=== PATIENT | female | born 1955 | race Caucasian/White ===

== ENCOUNTER 2021-06-10 07:13 | Outpatient (CLI) | payer MEDICARE, OTHER | END 2021-06-10 23:59 | disposition home or self-care (01) | LOC: LAB 07:13 | PROVIDERS: ATTEND Surgery | DX: Z01.812 Encounter for preprocedural laboratory examination (principal); Z20.822 Contact with and (suspected) exposure to COVID-19 ==

== ENCOUNTER 2021-06-11 06:02 | Day surgery (SDC) | payer MEDICARE, OTHER ==
[2021-06-11 06:50] LABS: *BILIRUBIN,URIN NEGATIVE (NEGATIVE); *CLARITY,URINE CLEAR (CLEAR); *COLOR,URINE YELLOW (YELLOW); *KETONES,URINE NEGATIVE (NEGATIVE); *UROBILINOGEN,URINE 0.2 E.U./dl (NORMAL); LEUKOCYTE ESTERASE ,URINE NEGATIVE (NEGATIVE); NITRITE, URINE NEGATIVE (NEGATIVE); PH,URINE 6.5 (5.0-8.0); UGLUCOSE NEGATIVE (NEGATIVE)
[2021-06-11 06:51] LABS: MEAN CORPUSCULAR VOLUME 89.1 fL (75.5-95.3); PLATELET COUNT (AUTO) 163 K/uL (179-408)
[2021-06-11 06:55] LABS: CREATININE 0.6 mg/dL (0.6-1.3)
[2021-06-11] MEDS ORDERED: BUPIVACAINE/EPI PF 0.25% 30 ML VIAL ONE (06:56)
[2021-06-11] MEDS ORDERED: LIDOCAINE HCL 1% 20 ML VIAL ONE (06:56)
[2021-06-11 07:04] LABS: BILIRUBIN,TOTAL 0.5 mg/dL (0.2-1.0); TOTAL PROTEIN, SERUM 6.9 g/dL (6.4-8.2)
[2021-06-11] MEDS ORDERED: HYDROMORPHONE 2 MG/1 ML DISP.SYRIN ONE (07:41)
[2021-06-11] MEDS ORDERED: ROCURONIUM BROMIDE 50 MG/5 ML VIAL ONE (07:42)
[2021-06-11] MEDS ORDERED: FAMOTIDINE. 20 MG/2 ML VIAL IV ONE (07:42)
[2021-06-11 08:00] LABS: *BLOOD, URINE TRACE (NEGATIVE)
[2021-06-11] MEDS ORDERED: FENTANYL CITRATE 100 MCG/2 ML AMPUL ONE (09:47)
[2021-06-11] MEDS ORDERED: HYDROMORPHONE 1 MG/1 ML DISP.SYRIN ONE (10:17)
[2021-06-11] MEDS ORDERED: ONDANSETRON 4 MG/2 ML VIAL ONE ×2 (10:17→10:20)
[2021-06-11] MEDS ORDERED: NEOSTIGMINE METHYLSULFATE 10 MG/10 ML VIAL ONE (10:20)
[2021-06-11] MEDS ORDERED: LIDOCAINE-MPF 2% 5 ML VIAL ONE (10:20)
[2021-06-11] MEDS ORDERED: PROPOFOL 200 MG/20 ML BOTTLE ONE (10:20)
[2021-06-11] MEDS ORDERED: GLYCOPYRROLATE 0.2 MG/ML VIAL ONE (10:20)
[2021-06-11] MEDS ORDERED: DEXAMETHASONE SOD PHOSPHATE 4 MG INJ ONE (10:20)
[2021-06-11] MEDS ORDERED: CEFAZOLIN 1 G VIAL ONE (10:20)
[2021-06-11] MEDS ORDERED: ACETAMINOPHEN 325 MG TABLET ONE (11:29)
[2021-06-11] MEDS ORDERED: ACETAMINOPHEN 325 MG TABLET PO ONE (11:30)
[2021-06-11] MEDS ORDERED: IBUPROFEN 800 MG TABLET PO ONE (11:30)
[2021-06-11] MEDS ORDERED: GABAPENTIN 300 MG CAPSULE PO ONE (11:30)
[2021-06-11 11:37] LABS: BACTERIA,URINE NONE SEEN /HPF (NONE SEEN); RBC,URINE 0-3 /HPF (0-3); SQUAMOUS EPITHELIAL CELL,UR FEW /HPF (NONE SEEN); WBC,URINE 0-3 /HPF (0-3)
== END 2021-06-11 13:35 | disposition home or self-care (01) ==
LOC: DS 06:02
PROVIDERS: ATTEND Surgery
DX: K80.10 Calculus of gallbladder with chronic cholecystitis without obstruction (principal); I10 Essential (primary) hypertension; E78.5 Hyperlipidemia, unspecified; E66.9 Obesity, unspecified; M81.0 Age-related osteoporosis without current pathological fracture; Z79.899 Other long term (current) drug therapy; Z98.890 Other specified postprocedural states; Z82.49 Family history of ischemic heart disease and other diseases of the circulatory system
CPT/HCPCS: 36415; 47562; 71045; 80053; 81001; 85025; 85730; 88304; 93005; J0690; J1100; J1170 ×2; J2405 ×2; J3010; J3490 ×6; A4663

== ENCOUNTER 2025-04-27 05:57 | Day surgery (SDC) | payer MEDICARE, OTHER ==
[2025-04-27 09:15] VITALS: BP 154/76; TEMP 97.6
[2025-04-27] MEDS ORDERED: LIDOCAINE-MPF 2% 5 ML VIAL ONE (09:25)
[2025-04-27] MEDS ORDERED: PROPOFOL 200 MG/20 ML BOTTLE ONE ×2 (09:25)
== END 2025-04-27 09:31 | disposition home or self-care (01) ==
LOC: DS 05:57
PROVIDERS: ATTEND Surgery
DX: R19.4 Change in bowel habit (principal); R13.10 Dysphagia, unspecified; R10.13 Epigastric pain; K20.90 Esophagitis, unspecified without bleeding; K64.8 Other hemorrhoids; K64.4 Residual hemorrhoidal skin tags; I44.4 Left anterior fascicular block; K44.9 Diaphragmatic hernia without obstruction or gangrene; I10 Essential (primary) hypertension; I25.10 Atherosclerotic heart disease of native coronary artery without angina pectoris; M19.90 Unspecified osteoarthritis, unspecified site; Z87.440 Personal history of urinary (tract) infections; Z79.899 Other long term (current) drug therapy; Z90.49 Acquired absence of other specified parts of digestive tract
CPT/HCPCS: 43239; 45378; 88305; 88313; 88342; 93005; J3490; J7120; A4663